=== PATIENT | female | born 1980 | race Hispanic/Latino ===

== ENCOUNTER → 2023-01-18 | Outpatient (CLI) | payer BC | END | disposition home or self-care (01) | LOC: RAH 13:19 | PROVIDERS: ATTEND Family Medicine Sports Medicine | DX: Z12.31 Encounter for screening mammogram for malignant neoplasm of breast (principal); N63.41 Unspecified lump in right breast, subareolar | CPT/HCPCS: 77067 ==

== ENCOUNTER → 2023-05-14 | Outpatient (CLI) | payer BC | END | disposition home or self-care (01) | LOC: RAH 08:15 | PROVIDERS: ATTEND Family Medicine Sports Medicine | DX: N63.11 Unspecified lump in the right breast, upper outer quadrant (principal); N63.15 Unspecified lump in the right breast, overlapping quadrants | CPT/HCPCS: 76641; 77065 ==